=== PATIENT | male | born 1960 | race African-American/Black ===

== ENCOUNTER → 2017-03-24 | Outpatient (CLI) | payer OTHER ==
[2017-03-24 10:26] LABS: ALANINE AMINOTRANSFERASE 35 U/L (21-72); ALBUMIN 4.1 g/dL (3.5-5.0); ALKALINE PHOSPHATASE 79 U/L (38-126); ANION GAP 10 (5-19); ASPARTATE AMINO TRANSFERASE 30 U/L (17-59); BILIRUBIN,DIRECT 0.2 mg/dL (0.0-0.4); BILIRUBIN,TOTAL 0.5 mg/dL (0.2-1.3); BLOOD UREA NITROGEN 16 mg/dL (7-20); CALCIUM 9.7 mg/dL (8.4-10.2); CARBON DIOXIDE 30 mmol/L (22-30); CHLORIDE 104 mmol/L (98-107); CHOLESTEROL 136.28 mg/dL (0-200); GLUCOSE 111 mg/dL (75-110); MAGNESIUM 2.1 mg/dL (1.6-2.3); POTASSIUM 3.3 mmol/L (3.6-5.0); SODIUM 144.3 mmol/L (137-145); TOTAL PROTEIN 7.6 g/dL (6.3-8.2); TRIGLYCERIDES 110 mg/dL (<150); URIC ACID 8.4 mg/dL (3.5-8.5)
[2017-03-24 10:37] LABS: DIRECT LDL 89 mg/dL (<100)
== END ==
LOC: OD 09:27
PROVIDERS: ATTEND Internal Medicine Cardiovascular Disease
DX: I10 Essential (primary) hypertension (principal); Z79.899 Other long term (current) drug therapy; M10.371 Gout due to renal impairment, right ankle and foot; E66.09 Other obesity due to excess calories
CPT/HCPCS: 36415; 80048; 80061; 80076; 83735; 84443; 84550

== ENCOUNTER → 2017-04-05 | Outpatient (CLI) | payer OTHER ==
[2017-04-08 10:35] LABS: BLOOD UREA NITROGEN 18 mg/dL (7-20); CALCIUM 9.9 mg/dL (8.4-10.2); GLUCOSE 103 mg/dL (75-110)
[2017-04-08 10:36] LABS: ANION GAP 10 (5-19); CARBON DIOXIDE 28 mmol/L (22-30); CHLORIDE 102 mmol/L (98-107); POTASSIUM 3.8 mmol/L (3.6-5.0); SODIUM 139.8 mmol/L (137-145)
== END ==
LOC: OD 08:26
PROVIDERS: ATTEND Internal Medicine Cardiovascular Disease
DX: I10 Essential (primary) hypertension (principal); M10.371 Gout due to renal impairment, right ankle and foot
CPT/HCPCS: 36415; 80048; 84550

== ENCOUNTER → 2017-05-03 | Outpatient (CLI) | payer OTHER ==
[2017-05-03 10:09] LABS: ANION GAP 14 (5-19); BLOOD UREA NITROGEN 20 mg/dL (7-20); CALCIUM 9.6 mg/dL (8.4-10.2); CARBON DIOXIDE 24 mmol/L (22-30); CHLORIDE 105 mmol/L (98-107); GLUCOSE 103 mg/dL (75-110); POTASSIUM 4.5 mmol/L (3.6-5.0); SODIUM 142.9 mmol/L (137-145); URIC ACID 7.7 mg/dL (3.5-8.5)
== END ==
LOC: OD 08:56
PROVIDERS: ATTEND Internal Medicine Cardiovascular Disease
DX: M10.371 Gout due to renal impairment, right ankle and foot (principal); I10 Essential (primary) hypertension; E87.6 Hypokalemia; Z79.899 Other long term (current) drug therapy
CPT/HCPCS: 36415; 80048; 83735; 84550

== ENCOUNTER → 2017-06-17 | Outpatient (CLI) | payer OTHER ==
[2017-06-17 19:20] LABS: ANION GAP 10 (5-19); BLOOD UREA NITROGEN 21 mg/dL (7-20); CALCIUM 9.6 mg/dL (8.4-10.2); CARBON DIOXIDE 33 mmol/L (22-30); CHLORIDE 100 mmol/L (98-107); GLUCOSE 100 mg/dL (75-110); POTASSIUM 4.6 mmol/L (3.6-5.0); SODIUM 142.6 mmol/L (137-145); URIC ACID 6.1 mg/dL (3.5-8.5)
== END ==
LOC: OD 18:09
PROVIDERS: ATTEND Internal Medicine Cardiovascular Disease
DX: M10.371 Gout due to renal impairment, right ankle and foot (principal); I10 Essential (primary) hypertension
CPT/HCPCS: 36415; 80048; 84550